=== PATIENT | male | born 1955 | race Caucasian/White ===

== ENCOUNTER 2017-03-22 01:25 | Inpatient (IN) | payer OTHER ==
[~2017-03-22] VITALS: Ht 180.3 cm; Wt 64.0 kg
[2017-03-22 01:52] LABS: BASO % 0.6 %; BASO ABS # 0.05 K/uL (0-0.2); COMPLETE YES; EOS % 4.6 %; HEMATOCRIT 38.6 % (42-52); IG% 0.1 %; LYMPH % 31.7 %; LYMPH ABS # 2.81 K/uL (1.2-3.4); MEAN CELL VOLUME 88.1 fL (80-100); MEAN CORPUSCULAR HEMOGLOBIN 30.1 pg (25-34); MEAN CORPUSCULAR HGB CONC 34.2 g/dl (32-36); MEAN PLATELET VOLUME 9.8 fL (7.4-10.4); MONO % 7.7 %; NEUT % 55.3 %; PLATELET COUNT 343 K/uL (130-400); RED BLOOD COUNT 4.38 M/uL (4.7-6.1); WHITE BLOOD COUNT 8.87 K/uL (4.8-10.8)
[2017-03-22] MEDS ORDERED: POLY335019 PO (02:09)
[2017-03-22] MEDS ORDERED: TRIH2TAB2 PO (02:09)
[2017-03-22] MEDS ORDERED: BISA1TAB15 PO (02:09)
[2017-03-22] MEDS ORDERED: ASPI81TA28 PO (02:09)
[2017-03-22] MEDS ORDERED: CITA40TA4 PO (02:09)
[2017-03-22] MEDS ORDERED: TOLT1CAP3 PO (02:09)
[2017-03-22] MEDS ORDERED: DESM1TAB16 PO (02:09)
[2017-03-22] MEDS ORDERED: DOCU100T7 PO (02:09)
[2017-03-22] MEDS ORDERED: BUPR-79 PO (02:09)
[2017-03-22] MEDS ORDERED: CHOL1000 PO (02:09)
[2017-03-22] MEDS ORDERED: FENO160T PO (02:09)
[2017-03-22 02:17] LABS: ALT/SGPT 21 U/L (12-78); AST/SGOT 15 U/L (15-37); BLOOD UREA NITROGEN 13 mg/dl (7-18); BUN/CREATININE RATIO 13.2 (10-20); CARBON DIOXIDE 28 mmol/L (21-32); CHLORIDE 103 mmol/L (98-107); CREATININE 0.97 mg/dl (0.60-1.40); GLUCOSE 86 mg/dl (70-99); POTASSIUM 3.6 mmol/L (3.5-5.1); SODIUM 137 mmol/L (136-145)
[2017-03-22 02:28] LABS: ALKALINE PHOSPHATASE 43 U/L (45-117)
[2017-03-22 02:40] LABS: URINE APPEARANCE CLEAR (CLEAR); URINE BILIRUBIN NEG (NEG); URINE COLOR YELLOW; URINE EPITHELIAL CELL AUTO >30 /lpf (0-5); URINE NITRITE NEG (NEG); URINE PH 5.5 (4.5-7.5); URINE SPECIFIC GRAVITY 1.019 (1.000-1.030); UROBILINOGEN NEG (NEG)
[2017-03-22 02:45] LABS: MANUAL MICROSCOPIC REQUIRED? NO; REVIEW REQ? YES
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
[2017-03-22] MEDS ORDERED: ONDANSETRON INJ 2 MG/ML 2 ML VIAL IV PRN (04:15)
[2017-03-22] MEDS ORDERED: ACETAMINOPHEN 325 MG TAB PO PRN (04:15)
[2017-03-22] MEDS ORDERED: IV FLUIDS COMPLETED PRN (04:45)
[2017-03-22 05:53] VITALS: BP 139/82; PULSE 75; TEMP 36.4; Ht 180.3 cm; Wt 64.0 kg
[2017-03-22 07:31] LABS: URINE APPEARANCE CLEAR (CLEAR); URINE BILIRUBIN NEG (NEG); URINE COLOR YELLOW; URINE EPITHELIAL CELL AUTO >30 /lpf (0-5); URINE NITRITE NEG (NEG); URINE SPECIFIC GRAVITY 1.019 (1.000-1.030); UROBILINOGEN NEG (NEG)
[2017-03-22 07:37] LABS: MANUAL MICROSCOPIC REQUIRED? NO; REVIEW REQ? YES
[2017-03-22 08:34] VITALS: BP 116/48; PULSE 72; TEMP 36.6; O2SAT 98
[2017-03-22] MEDS: BuPROPion SR 150 MG TABCR PO SCH (08:54)
[2017-03-22] MEDS: TRIHEXYPHENIDYL HCL 2 MG TAB PO SCH ×3 (08:54→16:44)
[2017-03-22] MEDS: TOLTERODINE TARTRATE LA 4 MG CAPCR PO SCH (08:54)
[2017-03-22] MEDS: DOCUSATE SODIUM 100 MG CAP PO SCH (08:54)
[2017-03-22] MEDS: ASPIRIN 81 MG ECTAB PO SCH (08:55)
[2017-03-22] MEDS: POLYETHYLENE (MIRALAX) 17 GM PACK PO SCH (08:55)
[2017-03-22] MEDS: CITALOPRAM 40 MG TAB PO SCH (08:55)
[2017-03-22 16:02] VITALS: BP 116/74; PULSE 81; TEMP 36.8; O2SAT 93
[2017-03-22] MEDS: BOOST VANILLA PUDDING CUP PO SCH (16:44)
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
[2017-03-22] MEDS: DESMOPRESSIN ACETATE 0.1 MG TAB PO SCH (20:45)
[2017-03-23 00:20] VITALS: BP 129/77; PULSE 75; TEMP 36.5; O2SAT 95
[2017-03-23 07:10] VITALS: BP 103/62; PULSE 75; TEMP 36.8; O2SAT 94
[2017-03-23 08:05] LABS: HEMATOCRIT 40.4 % (42-52); MEAN CORPUSCULAR HEMOGLOBIN 29.7 pg (25-34); MEAN CORPUSCULAR HGB CONC 33.4 g/dl (32-36); MEAN PLATELET VOLUME 9.8 fL (7.4-10.4); PLATELET COUNT 332 K/uL (130-400); RED BLOOD COUNT 4.54 M/uL (4.7-6.1); WHITE BLOOD COUNT 7.85 K/uL (4.8-10.8)
[2017-03-23] MEDS: BOOST VANILLA PUDDING CUP PO SCH ×2 (08:08→18:30)
[2017-03-23] MEDS: BuPROPion SR 150 MG TABCR PO SCH (08:08)
[2017-03-23] MEDS: CITALOPRAM 40 MG TAB PO SCH (08:08)
[2017-03-23] MEDS: ASPIRIN 81 MG ECTAB PO SCH (08:08)
[2017-03-23] MEDS: TRIHEXYPHENIDYL HCL 2 MG TAB PO SCH ×3 (08:08→18:02)
[2017-03-23] MEDS: DOCUSATE SODIUM 100 MG CAP PO SCH (08:08)
[2017-03-23] MEDS: TOLTERODINE TARTRATE LA 4 MG CAPCR PO SCH (08:08)
[2017-03-23] MEDS: POLYETHYLENE (MIRALAX) 17 GM PACK PO SCH (08:08)
[2017-03-23 08:29] LABS: BUN/CREATININE RATIO 15.4 (10-20); CALCIUM 9.2 mg/dl (8.5-10.1); CREATININE 0.92 mg/dl (0.60-1.40); MAGNESIUM 2.1 mg/dl (1.8-2.4); POTASSIUM 3.7 mmol/L (3.5-5.1)
[2017-03-23 15:53] VITALS: BP 109/66; PULSE 77; TEMP 36.7; O2SAT 96
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
[2017-03-23] MEDS: DESMOPRESSIN ACETATE 0.1 MG TAB PO SCH (21:24)
[2017-03-23 23:58] VITALS: BP 133/85; PULSE 82; TEMP 37.1; O2SAT 95
[2017-03-24 07:09] VITALS: BP 113/65; PULSE 73; TEMP 36.3; O2SAT 97
[2017-03-24] MEDS: ASPIRIN 81 MG ECTAB PO SCH (08:33)
[2017-03-24] MEDS: BuPROPion SR 150 MG TABCR PO SCH (08:33)
[2017-03-24] MEDS: CITALOPRAM 40 MG TAB PO SCH (08:33)
[2017-03-24] MEDS: TRIHEXYPHENIDYL HCL 2 MG TAB PO SCH ×3 (08:33→16:57)
[2017-03-24] MEDS: TOLTERODINE TARTRATE LA 4 MG CAPCR PO SCH (08:33)
[2017-03-24] MEDS: BOOST VANILLA PUDDING CUP PO SCH ×2 (08:33→16:59)
[2017-03-24] MEDS: DOCUSATE SODIUM 100 MG CAP PO SCH (08:33)
[2017-03-24] MEDS: POLYETHYLENE (MIRALAX) 17 GM PACK PO SCH (08:34)
[2017-03-24 10:11] LABS: HEMATOCRIT 41.1 % (42-52); MEAN CELL VOLUME 88.2 fL (80-100); MEAN CORPUSCULAR HEMOGLOBIN 31.1 pg (25-34); MEAN CORPUSCULAR HGB CONC 35.3 g/dl (32-36); PLATELET COUNT 353 K/uL (130-400); RED BLOOD COUNT 4.66 M/uL (4.7-6.1); WHITE BLOOD COUNT 8.83 K/uL (4.8-10.8)
[2017-03-24 10:16] LABS: BUN/CREATININE RATIO 14.6 (10-20); CALCIUM 9.2 mg/dl (8.5-10.1); CREATININE 1.07 mg/dl (0.60-1.40); MAGNESIUM 2.1 mg/dl (1.8-2.4); POTASSIUM 3.6 mmol/L (3.5-5.1)
[2017-03-24 14:40] VITALS: BP 118/74; PULSE 83
[2017-03-24 15:16] VITALS: BP 118/74; PULSE 83; TEMP 36.9; O2SAT 98
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
[2017-03-24] MEDS: DESMOPRESSIN ACETATE 0.1 MG TAB PO SCH (20:12)
[2017-03-25 00:03] VITALS: BP 119/74; PULSE 78; TEMP 36.6; O2SAT 94
[2017-03-25 00:07] VITALS: O2SAT 94
[2017-03-25 07:23] VITALS: BP 125/69; PULSE 75; TEMP 36.5; O2SAT 97
[2017-03-25] MEDS: BOOST VANILLA PUDDING CUP PO SCH ×2 (08:30→17:42)
[2017-03-25] MEDS: TRIHEXYPHENIDYL HCL 2 MG TAB PO SCH ×3 (08:31→17:43)
[2017-03-25] MEDS: ASPIRIN 81 MG ECTAB PO SCH (08:31)
[2017-03-25] MEDS: BuPROPion SR 150 MG TABCR PO SCH (08:31)
[2017-03-25] MEDS: CITALOPRAM 40 MG TAB PO SCH (08:31)
[2017-03-25] MEDS: TOLTERODINE TARTRATE LA 4 MG CAPCR PO SCH (08:31)
[2017-03-25] MEDS: DOCUSATE SODIUM 100 MG CAP PO SCH (08:31)
[2017-03-25] MEDS: POLYETHYLENE (MIRALAX) 17 GM PACK PO SCH (08:31)
[2017-03-25 16:07] VITALS: BP 98/67; PULSE 89; TEMP 36.3; O2SAT 95
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
[2017-03-25] MEDS: DESMOPRESSIN ACETATE 0.1 MG TAB PO SCH (20:44)
[2017-03-26] VITALS: O2SAT 94
[2017-03-26 00:41] VITALS: BP 132/75; PULSE 77; TEMP 36.9; O2SAT 93
[2017-03-26 07:35] VITALS: BP 158/73; PULSE 98; TEMP 36.7; O2SAT 90
[2017-03-26] MEDS: BOOST VANILLA PUDDING CUP PO SCH ×2 (09:40→18:13)
[2017-03-26] MEDS: TRIHEXYPHENIDYL HCL 2 MG TAB PO SCH ×3 (09:43→16:49)
[2017-03-26] MEDS: TOLTERODINE TARTRATE LA 4 MG CAPCR PO SCH (09:44)
[2017-03-26] MEDS: CITALOPRAM 40 MG TAB PO SCH (09:44)
[2017-03-26] MEDS: DOCUSATE SODIUM 100 MG CAP PO SCH (09:45)
[2017-03-26] MEDS: ASPIRIN 81 MG ECTAB PO SCH (09:45)
[2017-03-26] MEDS: BuPROPion SR 150 MG TABCR PO SCH (09:45)
[2017-03-26] MEDS: POLYETHYLENE (MIRALAX) 17 GM PACK PO SCH (09:45)
[2017-03-26 15:05] VITALS: BP_SYST 145; BP_SYST 83; BP_DIAS 56; BP_DIAS 79; PULSE 64; PULSE 91; TEMP 36.3; O2SAT 91; O2SAT 96
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
[2017-03-26] MEDS: DESMOPRESSIN ACETATE 0.1 MG TAB PO SCH (20:33)
[2017-03-27 00:06] VITALS: BP 136/75; PULSE 76; TEMP 36.6; O2SAT 96
[2017-03-27 07:27] VITALS: BP 105/62; PULSE 70; TEMP 36.3; O2SAT 95
--- NOTE | 2017-03-27 08:37 | Psychiatric Progress Notes ---
Psychiatric Progress Note Date of Service Mar 27, 2017. Notes ID: Patient reviewed with liaison nurse. Initial consult by Dr. Avalos completed on 03/25, concerned about capacity with recs for additional collateral hx from parents. CC: "where am I?" with broken speech HPI: case reviewed with shift nurse. Patient seems more confused today than on initial consultation as oriented to self only, agree communication is difficult given degree of dysarthria. He had significant difficulty using bedside urinal. Nurse describes waxing/waning mental status (primarily orientation) without evidence of delirium. ROS: patient is unable to complete other than he has difficulty initiating urine stream and c/o gas this am Current Inpatient Medications Medications (Trade) Dose Ordered Sig/Rebeka Route Start Time Stop Time Status Last Admin Dose Admin Acetaminophen (Tylenol Tab) 650 mg Q4H PRN PO 03/22/17 04:15 04/21/17 04:14 Ondansetron HCl (Zofran Inj) 4 mg Q6H PRN IV 03/22/17 04:15 04/21/17 04:14 Aspirin (Ecotrin Tab) 81 mg DAILY PO 03/22/17 08:00 04/21/17 08:59 03/26/17 09:45 81 MG Bupropion HCl (Wellbutrin-Sr Tab) 150 mg DAILY PO 03/22/17 08:00 04/21/17 08:59 03/26/17 09:45 150 MG Citalopram Hydrobromide (celeXA TAB) 40 mg DAILY PO 03/22/17 08:00 04/21/17 08:59 03/26/17 09:44 40 MG Tolterodine Tartrate (Detrol LA Cap) 4 mg DAILY PO 03/22/17 08:00 04/21/17 08:59 03/26/17 09:44 4 MG Trihexyphenidyl HCl (Artane Tab) 2 mg TIDM PO 03/22/17 08:00 04/21/17 07:59 03/26/17 16:49 2 MG Desmopressin Acetate (Desmopressin Acetate) 0.2 mg HS PO 03/22/17 21:00 04/21/17 20:59 03/26/17 20:33 0.2 MG Docusate Sodium (coLACE CAP) 100 mg DAILY PO 03/22/17 08:00 04/21/17 08:59 12/10/17 09:45 100 MG Polyethylene (Miralax Powder Packet) 17 gm DAILY PO 03/22/17 08:00 04/21/17 08:59 03/26/17 09:45 17 GM Miscellaneous (Iv Fluids Completed) 1 ea PRN PRN N/A 03/22/17 04:45 03/22/18 04:44 Enteral Nutritional Formula (Boost Pudding) 1 cup BIDM PO 03/22/17 17:00 04/21/17 16:59 03/26/17 18:13 1 CUP MSE: alert, confused, thoughts difficult to assess. No SI/HI/ansari. Insight and Judgement are poor. Imp: 62 yo male with hx of TBI, presents with AMS from baseline Plan: patient lacks capacity to make medical decisions re: return home based on today's exam. Liaison has left message for parents still seeking collateral. His inability to care for self doesn't appear to be related to an underlying psych condition (bipolar, schizophrenia, depression). It is possible that he is experiencing anticholinergic effects of Artane now that he is getting supervised admin in the hospital. The patient has no head imaging on file with [facility] since 2005 and cannot tell me when last completed. Changes in MSE in patient with a CHI could also represent subclinical seizure activity, patient is on Wellbutrin. QTc normal on Celexa 40 mg. I would suggest holding Wellbutrin for now and defer to primary team on ability to taper back Artane.
[2017-03-27] MEDS: POLYETHYLENE (MIRALAX) 17 GM PACK PO SCH (09:09)
[2017-03-27] MEDS: ASPIRIN 81 MG ECTAB PO SCH (09:10)
[2017-03-27] MEDS: BOOST VANILLA PUDDING CUP PO SCH ×2 (09:10→17:38)
[2017-03-27] MEDS: CITALOPRAM 40 MG TAB PO SCH (09:11)
[2017-03-27] MEDS: DOCUSATE SODIUM 100 MG CAP PO SCH (09:13)
[2017-03-27] MEDS: TRIHEXYPHENIDYL HCL 2 MG TAB PO SCH ×3 (09:13→17:39)
[2017-03-27] MEDS: TOLTERODINE TARTRATE LA 4 MG CAPCR PO SCH (09:13)
[2017-03-27 15:17] VITALS: BP 124/71; PULSE 83; TEMP 36.7; O2SAT 93
[2017-03-27 15:57] VITALS: O2SAT 93
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
[2017-03-27] MEDS: DESMOPRESSIN ACETATE 0.1 MG TAB PO SCH (21:13)
[2017-03-27 23:52] VITALS: BP 137/80; PULSE 76; TEMP 36.1; O2SAT 98
[2017-03-28 07:24] VITALS: BP 120/65; PULSE 64; TEMP 36.5; O2SAT 98
[2017-03-28] MEDS: TRIHEXYPHENIDYL HCL 2 MG TAB PO SCH ×3 (08:21→17:34)
[2017-03-28] MEDS: ASPIRIN 81 MG ECTAB PO SCH (08:21)
[2017-03-28] MEDS: TOLTERODINE TARTRATE LA 4 MG CAPCR PO SCH (08:21)
[2017-03-28] MEDS: DOCUSATE SODIUM 100 MG CAP PO SCH (08:21)
[2017-03-28] MEDS: CITALOPRAM 40 MG TAB PO SCH (08:21)
[2017-03-28] MEDS: POLYETHYLENE (MIRALAX) 17 GM PACK PO SCH (08:22)
[2017-03-28] MEDS: BOOST VANILLA PUDDING CUP PO SCH ×2 (08:22→18:05)
[2017-03-28 15:26] VITALS: BP 136/77; PULSE 85; TEMP 36.4; O2SAT 94
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
[2017-03-28] MEDS: DESMOPRESSIN ACETATE 0.1 MG TAB PO SCH (21:18)
[2017-03-29] VITALS: O2SAT 94
[2017-03-29 00:27] VITALS: BP 131/78; PULSE 81; TEMP 37.2; O2SAT 96
[2017-03-29 07:33] VITALS: BP 122/71; PULSE 67; O2SAT 97
[2017-03-29] MEDS: CITALOPRAM 40 MG TAB PO SCH (08:20)
[2017-03-29] MEDS: POLYETHYLENE (MIRALAX) 17 GM PACK PO SCH (08:20)
[2017-03-29] MEDS: TOLTERODINE TARTRATE LA 4 MG CAPCR PO SCH (08:20)
[2017-03-29] MEDS: BOOST VANILLA PUDDING CUP PO SCH ×2 (08:20→17:00)
[2017-03-29] MEDS: DOCUSATE SODIUM 100 MG CAP PO SCH (08:20)
[2017-03-29] MEDS: TRIHEXYPHENIDYL HCL 2 MG TAB PO SCH ×3 (08:20→17:00)
[2017-03-29] MEDS: ASPIRIN 81 MG ECTAB PO SCH (08:20)
--- NOTE | 2017-03-29 11:46 | Discharge Instructions ---
Discharge Instructions Date of Service Mar 29, 2017. Admission Reason for Admission: Physical Deconditioning Discharge Discharge Diagnosis / Problem: GENERALIZED DECONDITIONING / DISABILITY AMBULATORY DYSFUNCTION/DYSPHAGIA Discharge Goals Goal(s): Decrease discomfort, Improve function, Increase independence, Improve disease control, Diagnostic testing, Therapeutic intervention Activity Recommendations Activity Level: Assistance Required Therapies: Physical Therapy, Occupational Therapy, Speech Therapy . Additional Information Patient informed of condition: Yes Advance Directives: No DNR: No Level of Care: Skilled Communicable Disease: No Prognosis: Stable [place] Catheter: No Instructions / Follow-Up Instructions / Follow-Up FOLLOW UP WITH PHYSICIAN AT [facility] DYSPHAGIA DIET : 1, Mechanical soft diet and HONEY thick liquids 2. Aspiration precautions, NO straws. Fully upright for meals and for 30 minutes after meals are completed. 3. Alternate solids and liquids. 4. Would benefit from WIPING RAG WASHER services at the SNF for carryover of recommendations and diet. TRAUMATIC WOUND AT SACRAL AREA: TREAT WITH AQUACEL AG AND OPTIFOAM DAILY NEED FREQUENT CHANGE OF POSITION /OFF LOADING TO PREVENT DEVELOPMENT OF PRESSURE SORES Current Hospital Diet Patient's current hospital diet: AHA Diet (Heart Healthy) Discharge Diet Recommended Diet: AHA Diet (Heart Healthy) Diet Texture: Mechanical Soft (ground) Liquid Consistency: Honey Thick Pending Studies Studies pending at discharge: no Physician Orders On Transfer Special Precautions: DYSPHAGIA DIET : 1, Mechanical soft diet and HONEY thick liquids 2. Aspiration precautions, NO straws. Fully upright for meals and for 30 minutes after meals are completed. 3. Alternate solids and liquids. 4. Would benefit from WIPING RAG WASHER services at the SNF for carryover of recommendations and diet. Dressing Changes: TRAUMATIC WOUND AT SACRAL AREA: TREAT WITH AQUACEL AG AND OPTIFOAM DAILY NEED FREQUENT CHANGE OF POSITION /OFF LOADING TO PREVENT DEVELOPMENT OF PRESSURE SORES Medical Emergencies . Who to Call and When: Medical Emergencies: If at any time you feel your situation is an emergency, please call 911 immediately. . Non-Emergent Contact Non-Emergency issues call your: Primary Care Provider . . "Provider Documentation" section prepared by Loren Cameron. . Core Measure Problem Core Measures: None
[2017-03-29] MEDS ORDERED: ACET-1047 PO (11:49)
[2017-03-29] MEDS ORDERED: NUTRMIS PO (11:49)
[2017-03-29 15:09] VITALS: BP 138/88; PULSE 81; TEMP 36.5; O2SAT 96
[2017-03-29 16:00] VITALS: O2SAT 96
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
[2017-03-29] MEDS: DESMOPRESSIN ACETATE 0.1 MG TAB PO SCH (21:33)
[2017-03-29 23:39] VITALS: BP 106/67; PULSE 75; TEMP 37.2; O2SAT 96
[2017-03-30 07:30] VITALS: BP 118/66; PULSE 75; TEMP 36.4; O2SAT 97
[2017-03-30] MEDS: TRIHEXYPHENIDYL HCL 2 MG TAB PO SCH ×3 (10:35→17:47)
[2017-03-30] MEDS: BOOST VANILLA PUDDING CUP PO SCH ×2 (10:35→17:48)
[2017-03-30] MEDS: POLYETHYLENE (MIRALAX) 17 GM PACK PO SCH (10:36)
[2017-03-30] MEDS: CITALOPRAM 40 MG TAB PO SCH (10:39)
[2017-03-30] MEDS: ASPIRIN 81 MG ECTAB PO SCH (10:39)
[2017-03-30] MEDS: TOLTERODINE TARTRATE LA 4 MG CAPCR PO SCH (10:39)
[2017-03-30] MEDS: DOCUSATE SODIUM 100 MG CAP PO SCH (10:39)
[2017-03-30 15:45] VITALS: BP 109/70; PULSE 80; TEMP 36.7; O2SAT 95
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
[2017-03-30] MEDS: DESMOPRESSIN ACETATE 0.1 MG TAB PO SCH (21:00)
[2017-03-31] VITALS: O2SAT 95
[2017-03-31 00:53] VITALS: BP 132/81; PULSE 71; TEMP 36.7; O2SAT 92
[2017-03-31 07:22] VITALS: BP 122/70; PULSE 72; TEMP 36.8; O2SAT 95
[2017-03-31 08:00] VITALS: O2SAT 95
[2017-03-31] MEDS: POLYETHYLENE (MIRALAX) 17 GM PACK PO SCH (08:00)
[2017-03-31] MEDS: TRIHEXYPHENIDYL HCL 2 MG TAB PO SCH ×3 (08:51→17:13)
[2017-03-31] MEDS: BOOST VANILLA PUDDING CUP PO SCH ×2 (08:51→17:00)
[2017-03-31] MEDS: TOLTERODINE TARTRATE LA 4 MG CAPCR PO SCH (08:51)
[2017-03-31] MEDS: ASPIRIN 81 MG ECTAB PO SCH (08:52)
[2017-03-31] MEDS: DOCUSATE SODIUM 100 MG CAP PO SCH (08:52)
[2017-03-31] MEDS: CITALOPRAM 40 MG TAB PO SCH (08:52)
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
[2017-03-31 15:04] VITALS: BP 114/75; PULSE 84; TEMP 36.5; O2SAT 93
[2017-03-31 16:37] VITALS: BP 114/75; PULSE 84; TEMP 36.5; O2SAT 93
== END 2017-03-31 19:10 | DRG 884 ==
LOC: EDBD 01:25 → C.EDB 01:26 → C.MS4W 04:13 → ENRESERV 04:54 → OBSVTOIN 03-23 12:32
PROVIDERS: ADMIT Internal Medicine; ATTEND Hospitalist
DX: R54 Age-related physical debility (principal); S31.000S Unspecified open wound of lower back and pelvis without penetration into retroperitoneum, sequela; R26.2 Difficulty in walking, not elsewhere classified; G60.0 Hereditary motor and sensory neuropathy; R47.1 Dysarthria and anarthria; R13.10 Dysphagia, unspecified; R32 Unspecified urinary incontinence; X58.XXXS Exposure to other specified factors, sequela; W19.XXXS Unspecified fall, sequela; Z87.891 Personal history of nicotine dependence